=== PATIENT | female | born 1980 | race Caucasian/White ===

== ENCOUNTER → 2020-03-05 15:36 | Outpatient (BNVA) | payer SELFPAY | PROVIDERS: Family Provider Family Medicine; Visit Provider Obstetrics & Gynecology | DX: N91.4 Secondary oligomenorrhea (principal) | CPT/HCPCS: 82670; 83001; 84146; 84402; 85027 ==

== ENCOUNTER → 2020-03-17 13:07 | Outpatient (BNVA) | payer SELFPAY | PROVIDERS: Family Provider Family Medicine; Visit Provider Obstetrics & Gynecology | DX: N91.5 Oligomenorrhea, unspecified (principal) | CPT/HCPCS: 76830; 88175 ==

== ENCOUNTER 2020-07-29 11:03 | Outpatient (CLI) | payer SELFPAY ==
--- NOTE | 2020-07-29 11:13 | XR_ITS ---
WS: [id number] Lumbar spine, 3 views, 07/29/2020 Clinical Data: DORSALGIA Comparison: Lumbar spine, 07/07/2014. Findings: No compression fractures or subluxation is seen. There is degenerative disc narrowing at L5-S1.. The transverse processes and SI joints are normal. Minimal anterior osteophytes are present at L2-L3. XR/XR lumbar spine 2-3V* [id number] Impression: 1. Degenerative disc narrowing at L5-S1. 2. Minimal osteoarthritic spurring at L2-L3.
== END 2020-07-29 11:04 | disposition home or self-care (01) ==
LOC: RAD 11:08
PROVIDERS: PCP Nurse Practitioner; Visit Provider Nurse Practitioner
DX: M54.5 Low back pain (principal)
CPT/HCPCS: 72100

== ENCOUNTER → 2020-08-06 09:50 | Outpatient (BNVA) | payer SELFPAY | PROVIDERS: PCP Nurse Practitioner; Referring Provider Nurse Practitioner; Visit Provider Anesthesiology Pain Medicine | DX: G89.29 Other chronic pain (principal); M48.062 Spinal stenosis, lumbar region with neurogenic claudication; M54.9 Dorsalgia, unspecified; M25.552 Pain in left hip | CPT/HCPCS: 99204 ==

== ENCOUNTER 2020-08-17 10:52 | Outpatient (CLI) | payer SELFPAY ==
--- NOTE | 2020-08-17 11:00 | MR_ITS ---
WS: [id number] MRI LUMBAR SPINE NONCONTRAST HISTORY: M48.062 - Spinal stenosis, lumbar region with neurogenic ... COMPARISON: 10/23/2014 TECHNIQUE: Sagittal and axial multisequence imaging is submitted. Mild LEFT curvature thoracic spine. Straightening of the normal lumbar lordosis. No marrow edema or acute fracture. Mild disc space narro wing and desiccation at L4-5 and L5-S1 similar to the prior study. Degenerative disc disease at T10-11 and T11-12. At T10-11 LEFT paracentral small disc protrusion with annular fissure. At T11-12 there is a shallow central disc bulging without significant stenosis or c ontact on the cord. Conus terminates normally at L1-2 disc level. L1-L2: Normal. L2-L3: Normal. L3-L4: Mild ligamentum flavum disease and facet arthritis. No stenosis. L4-L5: Mild ligamentum flavum disease with facet arthritis and fluid in the facet joints. Disc osteop hyte with protrusion and annular fissure in the LEFT foramen with mild contact on the LEFT L4 nerve r oot. Additional smaller disc protrusion with fissure in the RIGHT foramen without significant stenosi s. L5-S1: Mild disc bulging with mild ligamentum flavum disease and facet arthritis. There is mild narro wing of the LEFT subarticular recess and foramen due to disc and osteophyte disease. Paravertebral soft tissues are negative. Mild uterine enlargement. Uterus measures 11.3 cm in length with increased fluid along the endometrial canal. Recent ultrasound was performed on 03/17/2020 which described a fibroid uterus. MR/MR lumbar spine wo con* [id number] IMPRESSION: 1. Mild to moderate stenosis of the LEFT L4-5 foramen due to disc and osteophy te and annular fissures within the disc contacting the L4 nerve root. Very slig ht progression since 2014. 2. Moderate LEFT subarticular recess and foraminal stenosis at L5-S1 due to di sc and osteophyte disease. Similar to the prior study.
== END 2020-08-17 10:53 | disposition home or self-care (01) ==
LOC: RADSHAW 10:56
PROVIDERS: PCP Nurse Practitioner; Visit Provider Anesthesiology Pain Medicine
DX: M48.062 Spinal stenosis, lumbar region with neurogenic claudication (principal); M48.07 Spinal stenosis, lumbosacral region
CPT/HCPCS: 72148

== ENCOUNTER → 2020-10-22 09:25 | Outpatient (BNVA) | payer OTHER, SELFPAY | PROVIDERS: PCP Nurse Practitioner; Visit Provider Anesthesiology Pain Medicine | DX: G89.29 Other chronic pain (principal); M54.5 Low back pain; M25.552 Pain in left hip | CPT/HCPCS: 99214 ==

== ENCOUNTER 2020-12-22 10:33 | Outpatient (RCR) | payer OTHER, SELFPAY | END 2020-12-26 23:59 | disposition home or self-care (01) | LOC: SPT 10:33 | PROVIDERS: PCP Nurse Practitioner; Visit Provider Anesthesiology Pain Medicine | DX: M54.50 Low back pain, unspecified (principal); G89.29 Other chronic pain | CPT/HCPCS: 97161 ==

== ENCOUNTER 2020-12-27 06:00 | Outpatient (RCR) | payer OTHER, SELFPAY | END 2021-01-18 12:23 | disposition home or self-care (01) | LOC: SPT 06:00 | PROVIDERS: PCP Nurse Practitioner; Visit Provider Anesthesiology Pain Medicine | DX: M54.50 Low back pain, unspecified (principal); G89.29 Other chronic pain | CPT/HCPCS: 97113 ==

== ENCOUNTER → 2020-12-30 08:58 | Outpatient (BNVA) | payer OTHER, SELFPAY | PROVIDERS: PCP Nurse Practitioner; Visit Provider Anesthesiology Pain Medicine | DX: G89.29 Other chronic pain (principal); M54.50 Low back pain, unspecified; M25.552 Pain in left hip; M79.604 Pain in right leg; M79.605 Pain in left leg | CPT/HCPCS: 99213 ==

== ENCOUNTER → 2021-10-05 14:34 | Outpatient (BNVA) | payer OTHER, SELFPAY | PROVIDERS: PCP Nurse Practitioner; Referring Provider Nurse Practitioner Family; Visit Provider Obstetrics & Gynecology | DX: Z01.419 Encounter for gynecological examination (general) (routine) without abnormal findings (principal) | CPT/HCPCS: 87624 ==

== ENCOUNTER 2021-10-21 12:25 | Outpatient (RCR) | payer OTHER, SELFPAY | END 2021-10-26 23:59 | disposition home or self-care (01) | LOC: SPT 12:25 | PROVIDERS: PCP Nurse Practitioner; Referring Provider Nurse Practitioner Family; Visit Provider Nurse Practitioner Family | DX: M54.9 Dorsalgia, unspecified (principal) | CPT/HCPCS: 97161 ==

== ENCOUNTER → 2021-11-03 13:19 | Outpatient (BNVA) | payer OTHER, SELFPAY | PROVIDERS: PCP Nurse Practitioner; Visit Provider Obstetrics & Gynecology | DX: N92.0 Excessive and frequent menstruation with regular cycle (principal) | CPT/HCPCS: 76830 ==

== ENCOUNTER 2021-11-08 06:42 | Day surgery (SDC) | payer OTHER, SELFPAY ==
[2021-11-07 11:56] VITALS: BMI 36.3
[2021-11-08] VITALS (8 sets, daily range): BP systolic 134–153; BP diastolic 85–103; PULSE 63–87; RESP 16–20; TEMP 36.5–37.1; O2SAT 97–100
[2021-11-08 07:19] LABS: OR HCG Qualitative Urine Negative (Negative)
[2021-11-08] MEDS: sodium chloride 0.9% 1,000 ML 30 ML IV (07:31)
--- NOTE | 2021-11-08 07:50 | ANES.PREANE2 ---
Pre-Anesthetic Assessment Height/Weight: Height 1.6 m Weight 92.986 kg Temp Pulse Resp BP Pulse Ox O2 Del Method 97.8 F 63 18 153/103 97 11/08/21 07:04 11/08/21 07:04 11/08/21 07:04 11/08/21 07:04 11/08/21 07:04 11/08/21 07:06 Preop Diagnosis: menorrhagia, endometrial polyps Operation Date: 11/08/21 08:35 Proposed Procedures p Hysteroscopy, dilation and curettage with Myosure and Novasure 79700, 80379, 28049,N84.0,N92.0(Not Applicable) - Joyce Diego MD s Hysteroscopy w/ Ablation w/ Novasure(Not Applicable) - Joyce Diego MD s Dilation And Curettage (D&C)(Not Applicable) - Joyce Diego MD Familial anesthetic complications: After tubal had some difficulty breathing, resolved with observation Was Beta Nafisa taken within 24 hours: Yes Was Clonidine taken within 24 hours: N/A Last intake: Intake Last Liquid Date 11/07/21 Last Liquid Time 21:00 Last Solid Date 11/07/21 Last Solid Time 18:30 Social No alcohol and No tobacco Exam alert, oriented x 3, clear to auscultation bilaterally and regular rate & rhythm Airway Submandibular: within normal limits Cervical ROM: within normal limits Mallampati: Class II Dentition: full Pulmonary Asthma CV/HEM Hypertension METS > 4 Menorrhagia, oligomenorrhea Hepatic None reported GI PCOS Metabolic [place] [facility] [place] Fibromyalgia Neuropsych Anxiety, Depression and Headache Anesthetic Plan ASA status: 2 Anesthesia: Anesthesia Evaluation and General Other: We discussed risk and benefits of general anesthesia including PONV, sore throat (sometimes severe), corneal abrasion, positioning and peripheral nerve injuries, life threatening allergic reaction, post operative ICU admission requiring prolonged intubation, aspiration, stroke, heart attack, , and rare incidences of recall. Patient consents to proceed with general anesthesia. Medications/Allergies Home Medications Medication Instructions Recorded Confirmed Last Taken Type hydrochlorothiazide 25 mg tablet 25 mg PO DAILY PRN Edema 03/05/20 11/08/21 10/11/21 History ibuprofen 600 mg tablet 600 mg PO QID PRN Pain 03/05/20 11/08/21 10/27/21 History metoprolol tartrate 25 mg tablet 25 mg PO BID 03/05/20 11/08/21 11/08/21 06:20 History venlafaxine 37.5 mg tablet 37.5 mg PO DAILY 10/05/21 11/08/21 11/07/21 History cranberry wuoe-K-owkqjqpi coag 450 1 tab PO DAILY 10/24/21 11/08/21 11/07/21 History mg-30 mg-50 million cell tablet (Vbjouzkof-Wedmrswlt-Fkvgnuo C) gabapentin 300 mg capsule 300 mg PO TID pain 90 days #270 10/24/21 11/08/21 11/07/21 Rx caps multivitamin 1 tab PO DAILY 10/24/21 11/08/21 11/07/21 History Allergies Allergy/AdvReac Type Severity Reaction Status Date / Time codeine Allergy hives Verified 11/08/21 06:57 egg Allergy Explosive Verified 11/08/21 06:57 diarrhea, cramping, nausea latex Allergy irritation Verified 11/08/21 06:57 of skin naproxen [From Aleve] Allergy knees and Verified 11/08/21 06:57 ankles hurt and swell Sulfa (Sulfonamide Allergy burn rash Verified 11/08/21 06:57 Antibiotics) over body sumatriptan [From Imitrex] AdvReac Severe migraine Verified 11/08/21 06:57 worsened Current Medications Generic Name Dose Route Start Last Admin Trade Name Freq PRN Reason Stop Dose Admin Sodium Chloride 1,000 mls @ 30 mls/hr 11/08/21 07:00 11/08/21 07:31 Sodium Chloride 0.9% IV 11/09/21 06:59 30 mls/hr .Q24H MANUEL Administration PFSH Anesthesia Medical History Arthritis Spine Asthma Mild Back pain Depression Fibromyalgia Hypertension Migraines Surgical History History of bilateral tubal ligation (~2006) . [place] [facility] Family History Mother Family history of thyroid problem Stroke Hyperlipidemia Hypertension Grandmother Family history of thyroid problem Maternal CAD (coronary artery disease) Paternal Family/Other Family history of thyroid problem Maternal Aunt CAD (coronary artery disease) Paternal Uncle Breast cancer Maternal Aunt Ovarian cancer Aunt Grandfather CAD (coronary artery disease) Paternal Liver cancer Paternal Hypertension Paternal Father Hypertension Sister Hypertension Brother Hypertension Family history of thyroid problem Social History Smoking and tobacco status: never smoked Second hand smoke exposure: No Alcohol intake: never History of recent travel: Yes Details: [place], [place] Out of state: Yes Female Reproductive History Date of last menstrual period: 10/14/21 Data Anesthesia Cardiac Studies: No Data to Display
[2021-11-08] MEDS: scopolamine 1.5 Patch 1 PATCH TRANSDERMA (07:59)
[2021-11-08] MEDS: diphenhydrAMINE 50 mg/mL SDV 1mL 12.5 MG IVP (07:59)
--- NOTE | 2021-11-08 08:09 | W.PM.OPSUD ---
Surgery/Procedure H&P Update DATE OF PROCEDURE: November 08, 2021 DATE H&P PERFORMED: 11/07/21 H&P UPDATE INFORMATION: I have reviewed H&P completed within last 30 days, I have examined patient prior to procedure and No changes to prior documentation PREOP DIAGNOSIS: menorrhagia, endometrial polyps PLANNED PROCEDURE: Operation Date: 11/08/21 08:35 Proposed Procedures p Hysteroscopy, dilation and curettage with Myosure and Novasure 04202, 54484, 32004,N84.0,N92.0(Not Applicable) - Joyce Diego MD s Hysteroscopy w/ Ablation w/ Novasure(Not Applicable) - Joyce Diego MD s Dilation And Curettage (D&C)(Not Applicable) - Joyce Diego MD Related Problem List Diagnoses (1) Endometrial polyp:
[2021-11-08] MEDS: ceFAZolin 2,000 MG in sodium chloride 0.9% (plus) 50 ML 100 MG IV (08:33)
--- NOTE | 2021-11-08 09:27 | PM.OP ---
Operative Report Date of procedure: November 08, 2021 Pre-op diagnosis: Preop Diagnosis menorrhagia, endometrial polyps Post-op diagnosis: same Post-op findings: endometrial and endocervical polyps Procedure done: hysteroscopy, D&C with myosure, endometrial ablation with novasure Specimens removed/disposition: endometrial and endocervical curettings to pathology Surgeon: Joyce Diego Anesthesia: General Estimated blood loss (mL): 10 IV fluids (mL): 800 Complications: none Findings: 11 week sized enlargd uterus. Multiple uterine polyps Condition: stable Disposition: PACU Procedure: The patient was taken to the operating room where monitored anesthesia was administered and to be adequate. She was prepped and draped in the normal sterile fashion in the dorsal lithotomy position in [facility]. A weighted speculum was placed into the vagina and the anterior lip of the cervix grasped with a single-tooth tenaculum. The uterus was sounded to 11 cm. The cervix was dilated to 16 Italian. The hysteroscope was advanced into the endometrial cavity. There was excessive tissue, endometrial polyps, endocervical polyps visualized. The MyoSure device was activated and the endometrial tissue was removed. An endocervical curettage was performed and sent to pathology. Pictures were taken. Attention was then turned to the NovaSure portion of the procedure. The NovaSure device was advanced into the endometrial cavity. The endometrial length was 6.5+ and the endometrial width was 4.8. The NovaSure device was activated and burn time was 33 seconds. All instruments were removed. The patient tolerated the procedure well. Sponge lap and needle counts were correct x3. She was taken to the recovery room in stable condition.
--- NOTE | 2021-11-08 09:34 | PM.DCS ---
Discharge Providers Date of Admission: 11/08/21 Date of Discharge: November 08, 2021 Attending Provider at Discharge: Joyce Diego MD Primary Care Provider: Cinda Sweet NP Diagnoses at Discharge Discharge Diagnosis (1) Endometrial polyp: Status: Acute Hospital Course Hospital Course The patient was admitted for surgery. She did well postoperatively and was ready for discharge. Discharge Data Studies Completed and Pending Pending at discharge Category Date Time Status ES surgery / GI images Routine Exams 11/08/21 08:15 Taken Pathology: Surgical [PTH] Routine Pth 11/08/21 09:14 Ordered Laboratory Results Urine HCG, Qual Negative (Negative) 11/08/21 07:18 Vitals Last Vital Signs Temp 97.8 F 11/08/21 07:04 Pulse 63 11/08/21 07:04 Resp 18 11/08/21 07:04 BP 153/103 11/08/21 07:04 Pulse Ox 97 11/08/21 07:04 O2 Del Method 11/08/21 07:06 Discharge Plan Discharge Patient Disposition: Home Condition: Stable Prescriptions: Continued metoprolol tartrate 25 mg tablet 25 mg PO BID hydrochlorothiazide 25 mg tablet 25 mg PO DAILY PRN (Reason: Edema) ibuprofen 600 mg tablet 600 mg PO QID PRN (Reason: Pain) venlafaxine 37.5 mg tablet 37.5 mg PO DAILY multivitamin Tablet 1 tab PO DAILY Egsjiyrgm-Bwpvqerny-Qnprkms C 450-30-50 kt-hw-bienwpb tablet 1 tab PO DAILY gabapentin 300 mg capsule 300 mg PO TID 90 Days Qty: 270 0RF Discharge Orders: Discharge Order (Routine); Ordered 11/08/21 Ordered By: Joyce Diego Discharge Attestations Time Spent in Discharge Care*: less than 30 min Quality Metrics Clinical Quality Measures [ No reported AMI, CVA or VTE this stay] Coding Level of Care Code Acute Chg FW DC note Diagnoses Endometrial polyp N84.0
--- NOTE | 2021-11-08 09:44 | SUR.PHASEI ---
0931 PT TO PACU 4 PT AWAKES TO VOICE, GOOD RESP EFFORT NOTED MONITOR SR WITH NO ECTOPY, ABDOMEN SOFT, PT VERBALLY DENIES NAUSEA, C/O OF SOME CRAMPING PAIN PT SMILING AND TALKATIVE, WARM BLANKET TO ABDOMEN FOR COMFORT, IV TO RT WRIST #20 WITH NS 200ML UP AT KVO RATE PER GRAVITY, ID BRACELET TO RT WRIST, PT ID'D WITH 2 IDENTIFERS
--- NOTE | 2021-11-08 10:06 | SUR.PHASEI ---
0954 PT AWAKE ALERT DENIES PAIN AND NAUSEA, PT TO ROOM PT HANDOFF AT BEDSIDE WITH MINESH SOSA.
--- NOTE | 2021-11-08 15:42 | ANE.PACU2 ---
Inpatient post-anesthesia follow up: Airway intact: Yes Vital signs: Temperature 97.7 F Pulse Rate 68 Respiratory Rate 18 Blood Pressure 146/99 Pulse Oximetry 99 Oxygen Delivery Me thod Room Air Oxygen Flow Rate Fraction of Inspir ed Oxygen Hydration adequate: Yes Nausea and vomiting: No Pain level: 1 Mental status: Baseline
== END 2021-11-08 10:54 | disposition home or self-care (01) ==
PROVIDERS: PCP Nurse Practitioner Family; Visit Provider Obstetrics & Gynecology
PROC: 0UDB8ZZ Extraction of Endometrium, Via Natural or Artificial Opening Endoscopic (ICD-10-PCS; CPT 58558; principal; 2021-11-08 08:25)
PROC: 0U598ZZ Destruction of Uterus, Via Natural or Artificial Opening Endoscopic (ICD-10-PCS; CPT 58563; 2021-11-08 08:25)
PROC: (CPT 58120; 2021-11-08 08:25)
DX: N84.0 Polyp of corpus uteri (principal); J45.909 Unspecified asthma, uncomplicated; I10 Essential (primary) hypertension; Z88.2 Allergy status to sulfonamides; Z88.5 Allergy status to narcotic agent
CPT/HCPCS: 58558; 81025; 84703; 88305; J1100; J1200; J1885; J2405; J2704; J3010; J3490; J7030

== ENCOUNTER 2022-01-03 11:54 | Observation (INO) | payer OTHER, SELFPAY ==
[2022-01-02 12:46] VITALS: BMI 35.7
[2022-01-03] VITALS (24 sets, daily range): BP systolic 99–162; BP diastolic 66–105; PULSE 55–86; RESP 10–20; TEMP 36.1–37.3; O2SAT 91–97
--- NOTE | 2022-01-03 08:29 | W.PM.OPSUD ---
Surgery/Procedure H&P Update DATE OF PROCEDURE: January 03, 2022 DATE H&P PERFORMED: 12/29/21 H&P UPDATE INFORMATION: I have reviewed H&P completed within last 30 days, I have examined patient prior to procedure and No changes to prior documentation PREOP DIAGNOSIS: Simple endometrial hyperplasia PLANNED PROCEDURE: Operation Date: 01/03/22 09:30 Proposed Procedures p Laparoscopic assisted vaginal hysterectomy, bilateral salpingectomy 85608, Possible anterior and posterior repair 25126,N85.01,N92.0(Not Applicable) - Joyce Diego MD s Laparoscopic Salpingectomy(Bilateral) - Joyce Diego MD s Anterior Repair(Not Applicable) - Joyce Diego MD s Posterior Repair(Not Applicable) - Joyce Diego MD s Sling Single Incision Midurethral Sling(Not Applicable) - Joyce Diego MD Related Problem List Diagnoses (1) Simple endometrial hyperplasia: (2) Menorrhagia: (3) Endometrial polyp: (4) Oligomenorrhea: Qualifiers: Oligomenorrhea type: secondary Qualified Code(s): N91.4 - Secondary oligomenorrhea
[2022-01-03] MEDS: CELEcoxib 200 mg Capsule 400 MG PO (08:37)
[2022-01-03] MEDS: gabapentin 300 mg Capsule PO ×3 (08:38→21:39)
[2022-01-03] MEDS: phenazopyridine 100 mg Tablet 200 MG PO ×3 (08:39→21:39)
[2022-01-03] MEDS: scopolamine 1.5 Patch 1 PATCH TRANSDERMA (08:39)
[2022-01-03] MEDS: acetaminophen 1,000 MG/100 ML PIGGYBACK 400 MG IV (08:53)
[2022-01-03] MEDS: ceFAZolin 2,000 MG in sodium chloride 0.9% (plus) 50 ML 100 MG IV ×2 (09:23→17:35)
[2022-01-03 09:28] LABS: Basophils # 0.1 10^3/uL (0.0-0.1); Basophils % 0.9 %; Eosinophils # 0.4 10^3/uL (0.0-0.8); Eosinophils % 7.2 %; Hematocrit 42.7 % (37.0-47.0); Hemoglobin 13.5 g/dL (11.5-15.3); Lymphocytes # 1.2 10^3/uL (0.8-4.8); Lymphocytes % 20.4 %; Mean Corpuscular HGB Conc 31.6 g/dL (30.0-36.0); Mean Corpuscular Hemoglobin 29.3 pg (28.0-34.0); Mean Corpuscular Volume 92.8 fl (81-99); Mean Platelet Volume 10.5 fL (7.4-10.4); Monocytes # 0.3 10^3/uL (0.2-0.9); Monocytes % 5.9 %; Neutrophils # 3.74 10^3/uL (1.8-7.7); Neutrophils % 65.3 %; Nucleated Red Blood Cells % 0 %; Platelet Count 276 10^3/cmm (130-400); Red Cell Distribution Width 12.7 % (12.1-15.1); White Blood Count 5.7 10^3/uL (4.0-10.0)
--- NOTE | 2022-01-03 09:45 | ANES.PREANE2 ---
Pre-Anesthetic Assessment Height/Weight: Height 1.6 m Weight 91.626 kg Temp Pulse Resp BP Pulse Ox O2 Del Method 99.2 F 59 L 16 155/95 97 01/03/22 08:22 01/03/22 08:22 01/03/22 08:22 01/03/22 08:22 01/03/22 08:22 01/03/22 08:22 Preop Diagnosis: Simple endometrial hyperplasia Operation Date: 01/03/22 09:30 Proposed Procedures p Laparoscopic assisted vaginal hysterectomy, bilateral salpingectomy 87277, Possible anterior and posterior repair 97749,N85.01,N92.0(Not Applicable) - Joyce Diego MD s Laparoscopic Salpingectomy(Bilateral) - Joyce Diego MD s Anterior Repair(Not Applicable) - Joyce Diego MD s Posterior Repair(Not Applicable) - Joyce Diego MD s Sling Single Incision Midurethral Sling(Not Applicable) - Joyce Diego MD Familial anesthetic complications: none Was Beta Nafisa taken within 24 hours: Yes Was Clonidine taken within 24 hours: N/A Last intake: Intake Last Liquid Date 01/01/22 Last Liquid Time 23:40 Last Solid Date 01/02/22 Last Solid Time 22:00 Social No alcohol and No tobacco Exam alert, oriented x 3, clear to auscultation bilaterally and regular rate & rhythm Airway Submandibular: within normal limits Cervical ROM: within normal limits Mallampati: Class II Dentition: full Pulmonary Asthma CV/HEM Hypertension Metabolic Morbid Obesity [facility] [place] Fibromyalgia and Lower Back Pain Neuropsych Anxiety and Depression Anesthetic Plan ASA status: 2 Anesthesia: General Medications/Allergies Home Medications Medication Instructions Recorded Confirmed Last Taken Type hydrochlorothiazide 25 mg tablet 25 mg PO DAILY PRN Edema 03/05/20 01/03/22 2 Months Ago History ~11/03/21 ibuprofen 600 mg tablet 600 mg PO QID PRN Pain 03/05/20 01/03/22 01/02/22 History metoprolol tartrate 25 mg tablet 25 mg PO BID 03/05/20 01/03/22 01/03/22 History venlafaxine 37.5 mg tablet 37.5 mg PO DAILY 10/05/21 01/03/22 01/02/22 History cranberry mcat-S-vxqpkpou coag 450 1 tab PO DAILY 10/24/21 01/03/22 01/02/22 History mg-30 mg-50 million cell tablet (Bvmnbflwt-Dbasiryjw-Wigpmbg C) gabapentin 300 mg capsule 300 mg PO TID pain 90 days #270 10/24/21 01/03/22 1 Week Ago Rx caps ~12/27/21 multivitamin 1 tab PO DAILY 10/24/21 01/03/22 01/02/22 History Allergies Allergy/AdvReac Type Severity Reaction Status Date / Time egg Allergy Severe Explosive Verified 01/03/22 09:07 diarrhea, cramping, nausea hydrocodone Allergy Severe ADR-Vomitin Verified 01/03/22 09:07 g Sulfa (Sulfonamide Allergy Severe burn rash Verified 01/03/22 09:07 Antibiotics) over body latex Allergy Mild irritation Verified 01/03/22 09:07 of skin naproxen [From Aleve] Allergy Mild knees and Verified 01/03/22 09:07 ankles hurt and swell codeine AdvReac Severe hives Verified 01/03/22 09:07 sumatriptan [From Imitrex] AdvReac Severe migraine Verified 01/03/22 08:18 worsened [facility] Anesthesia Medical History Arthritis Spine Asthma Mild Back pain Depression Fibromyalgia Hypertension Migraines Surgical History History of bilateral tubal ligation (~2006) . [place] [facility] [place], [place]. Family History Mother Family history of thyroid problem Stroke Hypertension Grandmother Family history of thyroid problem Maternal Family/Other Family history of thyroid problem Maternal Aunt Breast cancer Maternal Aunt Ovarian cancer Aunt Grandfather Hypertension Paternal Father Hypertension Sister Hypertension Brother Hypertension Family history of thyroid problem Denies family history of Colon cancer Diabetes Hypercholesteremia Uterine cancer Thyroid disease Female Reproductive History Date of last menstrual period: 12/15/21 Data Anesthesia : 01/03/22 08:58 01/03/22 08:58 Short CBC 01/03/22 Range/Units 08:58 WBC 5.7 (4.0-10.0) 10^3/uL Hgb 13.5 (11.5-15.3) g/dL Hct 42.7 (37.0-47.0) % MCV 92.8 (81-99) fl Plt Count 276 (130-400) 10^3/cmm Neut % (Auto) 65.3 % Neut # (Auto) 3.74 (1.8-7.7) 10^3/uL BMP 01/03/22 08:58 Sodium Cancelled Potassium Cancelled Chloride Cancelled Carbon Dioxide Cancelled BUN Cancelled Creatinine Cancelled Glucose Cancelled Calcium Cancelled Cardiac Studies: No Data to Display
[2022-01-03 10:30] LABS: Anion Gap 13.8 (5-19); Blood Urea Nitrogen 5 mg/dL (6-20); Calcium 8.3 mg/dL (8.5-10.5); Carbon Dioxide 24 mmol/L (22-29); Chloride 103 mmol/L (98-107); Glomerular Filtration Rate 109.6 mL/min (90-130); Glucose 98 mg/dL (65-115); Osmolality Calculated 281 mOsm/kg (285-295); Potassium 3.8 mmol/L (3.5-5.1); Sodium 137 mmol/L (136-145)
[2022-01-03] MEDS: vasopressin 20 unit/mL INJ INJECTION (11:00)
--- NOTE | 2022-01-03 11:37 | PM.OP ---
Operative Report Date of procedure: January 03, 2022 Pre-op diagnosis: Preop Diagnosis Simple endometrial hyperplasia Post-op diagnosis: same Post-op findings: 9 week sized uterus with multiple fibroids Procedure done: LAVH, perineorrhaphy, bilateral salpingectomy Specimens removed/disposition: uterus, tubes to pathology Surgeon: Joyce Diego Anesthesia: General Estimated blood loss (mL): 150 IV fluids (mL): 900 Urine output (mL): 1,000 Complications: none Findings: 9 week sized uterus, normal appearing ovaries, normal tubes with previous btl Condition: stable Disposition: PACU Procedure: The patient was taken to the operating room where general anesthesia was administered and found to be adequate. She was prepped and draped in the normal sterile fashion in the dorsal lithotomy position in [facility]. A Jerez catheter was placed. A weighted speculum was placed into the vagina and the anterior lip of the cervix was grasped with a single tooth tenaculum. The Zumi uterine manipulator was placed. The weighted speculum was removed. The gloves were changed and attention was turned to the abdomen. A 5 mm supraumbilical incision was made. Using a 5 mm port with the camera, the port was placed into the abdomen. The abdomen was insufflated. Two low, lateral 5 mm ports were placed on the left and right under direct visualization from the camera. The right tube was grasped and elevated. Using the laparoscopic cautery, the mesosalpinx was divided between the ovary and tube. The tube was removed. This was performed the same way on the left. The uteroovarian ligaments as well as the round ligaments were ligated. Attention was then turned to the vaginal portion of the procedure. The weighted speculum was placed into the vagina. The zumi manipulator was removed. The single tooth tenaculum was removed and replaced with the sierra's tenaculum. 10 mL of dilute Pitressin was injected at the vesicovaginal junction. A circumferential incision was made at the vesicovaginal junction and the vaginal mucosa reflected cephalad. The posterior peritoneum was entered sharply with the Metzenbaum scissors and the long weighted speculum replaced. Using the Jorge clamps the uterosacral ligaments were clamped cut and suture-ligated. The anterior peritoneum was entered sharply with the metzenbaum scissors. Then sequentially the uterine arteries and cardinal ligaments were clamped cut and suture-ligated. A single-tooth tenaculum was used to deliver the uterus. The remaining segement of the utero-ovarian ligaments were clamped cut and suture-ligated bilaterally and the specimen was removed. There was good hemostasis with only mild bleeding from the cuff. The peritoneum was closed with a pursestring using 2-0 Vicryl. The vaginal cuff was closed with 0 Vicryl in a running locked pattern incorporating the uterosacral ligaments into the lateral aspects of the vaginal cuff. The Jerez catheter was removed and the cystoscope advanced into the bladder. The patient was given pyridium and bilateral spill was noted. There were no injuries or deficits noted in the bladder. The cystoscope was removed and the Jerez was replaced. Attention was then turned to the perineorrhphy. Allis clamps were placed on the posterior fourchette. A 3 cm wedge of the fourchette was removed. This was repaired in the usual fashion with O-vicryl. Vaginal packing was placed for good hemostasis. The gloves and gowns were changed and attention was turned to the abdomen. The ports were closed with 2-0 monocryl with skin glue. The patient tolerated the procedure well. Sponge lap and needle counts were correct x3. She was taken to the recovery room in stable condition.
[2022-01-03] MEDS: ondansetron 2 mg/ML SDV 2 mL 4 MG IVP ×2 (12:15→12:32)
--- NOTE | 2022-01-03 12:16 | PC.NURSE ---
Small emesis appros 30 cc yellow bile
[2022-01-03] MEDS: metoclopramide 5 mg/mL SDV 2 mL 10 MG IVP ×2 (12:41→13:03)
[2022-01-03] MEDS: dextrose 5%-lactated ringers 1,000 ML 125 ML IV ×2 (13:54→21:42)
[2022-01-03] MEDS: ketorolac 30 mg/mL INJ IVP ×2 (13:55→19:44)
--- NOTE | 2022-01-03 15:24 | ANE.PACU2 ---
Inpatient post-anesthesia follow up: Airway intact: Yes Vital signs: Temperature 96.9 F Pulse Rate 63 Respiratory Rate 14 Blood Pressure 117/80 Pulse Oximetry 92 Oxygen Delivery Me thod Room Air Oxygen Flow Rate 2 Fraction of Inspir ed Oxygen Hydration adequate: Yes Nausea and vomiting: No Pain level: 4 Mental status: Baseline
[2022-01-03] MEDS: metoprolol tartrate 25 mg Tablet PO (19:44)
[2022-01-03] MEDS: docusate sodium 100 mg Capsule PO (19:44)
[2022-01-03] MEDS: venlafaxine ER (24HR) 37.5 mg Capsule PO (21:40)
[2022-01-04] MEDS: ceFAZolin 2,000 MG in sodium chloride 0.9% (plus) 50 ML 100 MG IV (01:41)
[2022-01-04] MEDS: ketorolac 30 mg/mL INJ IVP (01:41)
[2022-01-04 05:15] VITALS: BP 124/75; PULSE 72; TEMP 36.9; O2SAT 95
[2022-01-04 05:17] LABS: Hematocrit 35.3 % (37.0-47.0); Hemoglobin 11.6 g/dL (11.5-15.3); Mean Corpuscular HGB Conc 32.9 g/dL (30.0-36.0); Mean Corpuscular Hemoglobin 29.6 pg (28.0-34.0); Mean Corpuscular Volume 90.1 fl (81-99); Mean Platelet Volume 10.2 fL (7.4-10.4); Platelet Count 273 10^3/cmm (130-400); Red Blood Count 3.92 10^6/uL (4.1-5.3); Red Cell Distribution Width 12.6 % (12.1-15.1); White Blood Count 10.3 10^3/uL (4.0-10.0)
[2022-01-04] MEDS: metoprolol tartrate 25 mg Tablet PO (09:13)
[2022-01-04] MEDS: docusate sodium 100 mg Capsule PO (09:14)
[2022-01-04] MEDS: phenazopyridine 100 mg Tablet 200 MG PO (09:14)
[2022-01-04] MEDS: ibuprofen 800 mg tablet PO (09:14)
[2022-01-04] MEDS: gabapentin 300 mg Capsule PO (09:15)
[2022-01-04 09:16] VITALS: BP 134/84; PULSE 75; RESP 16; TEMP 36.7; O2SAT 96
--- NOTE | 2022-01-04 10:26 | P.DS_ITS ---
Discharge Providers Date of Admission: 01/03/22 11:54 Date of Discharge: January 04, 2022 Attending Provider at Admission: Joyce Diego MD Attending Provider at Discharge: Joyce Diego MD Primary Care Provider: Cinda Sweet NP Diagnoses at Discharge Discharge Diagnosis (1) Simple endometrial hyperplasia: Status: Acute (2) Menorrhagia: Status: Acute (3) Endometrial polyp: Status: Acute (4) Oligomenorrhea: Status: Acute Qualifiers: Oligomenorrhea type: secondary Qualified Code(s): N91.4 - Secondary oligomenorrhea Reason for Visit Reason for Visit: Benign endometrial hyperplasia Hospital Course Hospital Course The patient was admitted for surgery. She did well postoperatively and was ready for discharge on day #1. Physical Exam Const: COMMON NORMALS: no acute distress, patient oriented x3, no limitations, healthy appearing, alert and well nourished GENERAL APPEARANCE: cooperative, comfortable, well kempt and well developed ORIENTATION/CONSCIOUSNESS: Yes awake, Yes oriented to person, Yes oriented to place and Yes oriented to time Resp: COMMON NORMALS: normal respiratory effort EFFORT & INSPECTION: Yes able to speak in complete sentences GI: COMMON NORMALS: Soft to palpation and non-tender PALPATION: Yes Soft to palpation Extremity: COMMON NORMALS: no calf tenderness Neuro: COMMON NORMALS: patient oriented x3 SENSORIUM/ORIENTATION: Yes alert, Yes oriented to person, Yes oriented to place and Yes oriented to time Psych: COMMON NORMALS: mental status grossly normal, Normal thought process present, cooperative, normal affect and speech normal APPEARANCE: Yes well kempt SPEECH: Yes normal speech THOUGHT PROCESS: Normal thought process present Urinary Catheter Management: Jerez Latex Free: Cath Placed During This Visit: yes, but has since been removed by the nurse Reason for Continuing Indwelling Catheter: Decision to DC Catheter Urinary Catheter Date of Insertion: 01/03/22 Urinary Catheter Time of Insertion: 10:02 Date Urinary Catheter Removed: 01/04/22 Time Urinary Catheter Discontinued: 05:00 Discharge Data Studies Completed and Pending Pending at discharge Category Date Time Status Urine Culture Routine Lab 01/03/22 10:04 Received Pathology: Surgical [PTH] Routine Pth 01/03/22 11:31 Received Laboratory Results WBC 10.3 10^3/uL (4.0-10.0) H 01/04/22 05:10 RBC 3.92 10^6/uL (4.1-5.3) L 01/04/22 05:10 Hgb 11.6 g/dL (11.5-15.3) 01/04/22 05:10 Hct 35.3 % (37.0-47.0) L 01/04/22 05:10 MCV 90.1 fl (81-99) 01/04/22 05:10 MCH 29.6 pg (28.0-34.0) 01/04/22 05:10 MCHC 32.9 g/dL (30.0-36.0) 01/04/22 05:10 RDW 12.6 % (12.1-15.1) 01/04/22 05:10 Plt Count 273 10^3/cmm (130-400) 01/04/22 05:10 MPV 10.2 fL (7.4-10.4) 01/04/22 05:10 Neut % (Auto) 65.3 % 01/03/22 08:58 Lymph % (Auto) 20.4 % 01/03/22 08:58 Union % (Auto) 5.9 % 01/03/22 08:58 Eos % (Auto) 7.2 % 01/03/22 08:58 Baso % (Auto) 0.9 % 01/03/22 08:58 Neut # (Auto) 3.74 10^3/uL (1.8-7.7) 01/03/22 08:58 Lymph # (Auto) 1.2 10^3/uL (0.8-4.8) 01/03/22 08:58 [place] # (Auto) 0.3 10^3/uL (0.2-0.9) 01/03/22 08:58 Eos # (Auto) 0.4 10^3/uL (0.0-0.8) 01/03/22 08:58 Baso # (Auto) 0.1 10^3/uL (0.0-0.1) 01/03/22 08:58 Nucleated RBC % (auto) 0 % 01/03/22 08:58 Nucleated RBCs # 0.0 /100WBC 01/03/22 08:58 Sodium 137 mmol/L (136-145) 01/03/22 09:48 Potassium 3.8 mmol/L (3.5-5.1) 01/03/22 09:48 Chloride 103 mmol/L (98-107) 01/03/22 09:48 Carbon Dioxide 24 mmol/L (22-29) 01/03/22 09:48 Anion Gap 13.8 (5-19) 01/03/22 09:48 BUN 5 mg/dL (6-20) L 01/03/22 09:48 Creatinine 0.6 mg/dL (0.5-0.9) 01/03/22 09:48 GFR Calculation 109.6 mL/min (90-130) 01/03/22 09:48 Glucose 98 mg/dL (65-115) 01/03/22 09:48 Calculated Osmolality 281 mOsm/kg (285-295) L 01/03/22 09:48 Calcium 8.3 mg/dL (8.5-10.5) L 01/03/22 09:48 Blood Type A Positive 01/03/22 08:58 Rho(D) Type Positive 01/03/22 08:58 Antibody Screen Negative 01/03/22 08:58 Vitals Last Vital Signs Temp 98.1 F 01/04/22 09:16 Pulse 75 01/04/22 09:16 Resp 16 01/04/22 09:16 BP 134/84 01/04/22 09:16 Pulse Ox 96 01/04/22 09:16 O2 Del Method 01/04/22 09:16 O2 Flow Rate 2 01/03/22 12:50 Discharge Plan Discharge Patient Disposition: Home Condition: Stable Prescriptions: New ibuprofen 800 mg Tablet 800 mg PO Q8H Qty: 30 0RF hydrocodone-acetaminophen 5-325 mg Tablet 1 tab PO Q4H PRN (Reason: Moderate To Severe Pain) Qty: 30 0RF docusate sodium 100 mg Capsule 100 mg PO BID Qty: 60 0RF Continued metoprolol tartrate 25 mg tablet 25 mg PO BID hydrochlorothiazide 25 mg tablet 25 mg PO DAILY PRN (Reason: Edema) ibuprofen 600 mg tablet 600 mg PO QID PRN (Reason: Pain) multivitamin Tablet 1 tab PO DAILY Hxhhrqove-Icuafmfoq-Dolqiwi C 450-30-50 yi-jl-syayeoh tablet 1 tab PO DAILY gabapentin 300 mg capsule 300 mg PO TID 90 Days Qty: 270 0RF Effexor XR 37.5 mg Capsule,Extended Release 24hr 37.5 mg PO DAILY Discharge Orders: Discharge Order (Routine); Ordered 01/04/22 Ordered By: Joyce Diego Referrals: Joyce Diego MD [Physician] - 01/09/22 8:45 am (Your 6 week postoperative appointment is February 13, 2022 at 4:00 p.m.) Patient Instructions: Ibuprofen (By mouth), Laxative, Stool Softeners (By mouth), Salpingectomy (DC), Laparoscopic Hysterectomy (DC), Cystoscopy (DC), Posterior Vaginal Repair (DC), OB Food/Drug Interaction Guide, Opioid Safety Activity Restrictions/Additional Instructions: Nothing in vagina for 6 weeks Do not lift anything over 5 pounds Monitor incision sites for bleeding, separation, and bruising Monitor vaginal bleeding. Spotting is normal, anything heavier than spotting or a light period is abnormal and requires medical attention Monitor for signs of infection: fever greater than 100.4 F, chills, foul smelling vaginal discharge, and pus like drainage from incisions. Notify Dr. Sean shore immediately for concerns of infection. Seek medical care immediately for chest pain, shortness of breath or painful, red swollen calf muscle, severe abdominal pain No driving until released by Dr. Diego Discharge Attestations Time Spent in Discharge Care*: less than 30 min Quality Metrics Clinical Quality Measures [ No reported AMI, CVA or VTE this stay] Coding Level of Care Code Acute Chg FW DC note Diagnoses Simple endometrial hyperplasia N85.01 Menorrhagia N92.0 Endometrial polyp N84.0 Oligomenorrhea N91.4 Oligomenorrhea type: secondary
[2022-01-04 10:45] VITALS: BP 134/84; PULSE 75; RESP 16; TEMP 36.7; O2SAT 96
== END 2022-01-04 10:45 | disposition home or self-care (01) ==
LOC: OBGYN 11:54
PROVIDERS: Admitting Provider Obstetrics & Gynecology; PCP Nurse Practitioner Family; Visit Provider Obstetrics & Gynecology
PROC: 0UT9FZZ Resection of Uterus, Via Natural or Artificial Opening With Percutaneous Endoscopic Assistance (ICD-10-PCS; CPT 12002; principal; 2022-01-03 09:20)
PROC: (CPT 58661; 2022-01-03 09:20)
PROC: (CPT 57250; 2022-01-03 09:20)
PROC: 0TJB8ZZ Inspection of Bladder, Via Natural or Artificial Opening Endoscopic (ICD-10-PCS; CPT 52000; 2022-01-03 09:20)
DX: N85.01 Benign endometrial hyperplasia (principal); N91.4 Secondary oligomenorrhea; N92.0 Excessive and frequent menstruation with regular cycle; N84.0 Polyp of corpus uteri
CPT/HCPCS: 12002; 58552; 36415; 80048; 81025; 85025; 85027; 86850; 86900; 87086; 88307; G0378; J0131; J0690; J1100; J1170; J1200; J1885; J2370; J2405; J2704; J2710; J2765; J3010; J3490; J7121

== ENCOUNTER 2022-02-23 14:52 | Outpatient (CLI) | payer OTHER, SELFPAY ==
--- NOTE | 2022-02-23 15:00 | MM_ITS ---
WS: [id number] BILATERAL 3D TOMOSYNTHESIS DIGITAL SCREENING MAMMOGRAPHY WITH CAD CLINICAL INFORMATION: SCREEN HISTORY: Screening mammogram. No current complaints. COMPARISON: None. TECHNIQUE: Bilateral CC and MLO views. FINDINGS: Scattered fibroglandular densities bilaterally. No suspicious focal mass, asymmetry, calcifications, or architectural distortion. No evidence of malignancy. MM/[place] [id number] IMPRESSION: BI-RADS: 1-Negative FOLLOW UP: 1 Year Follow-up Recommend return to annual screening mammography.
== END 2022-02-23 14:53 | disposition home or self-care (01) ==
LOC: RAD 14:53
PROVIDERS: PCP Nurse Practitioner Family; Visit Provider Obstetrics & Gynecology
DX: Z12.31 Encounter for screening mammogram for malignant neoplasm of breast (principal)
CPT/HCPCS: 77063; 77067

== ENCOUNTER 2023-02-25 08:27 | Emergency (ER) | payer OTHER, SELFPAY ==
[2023-02-25 08:31] VITALS: BP 202/99; PULSE 65; RESP 18; TEMP 36.6; O2SAT 99; BMI 38.9
--- NOTE | 2023-02-25 08:43 | CTR_ITS ---
PROCEDURE INFORMATION: Exam: CT Head Without Contrast Exam date and time: 02/25/2023 8:50 AM Age: 42 years old Clinical indication: Pain; Speech disturbance; Headache; Migraine; Aura effect not specified; Does not respond to medication; Severity not specified; Additional info: Migraine, slurred speech TECHNIQUE: Imaging protocol: Computed tomography of the head without contrast. Radiation optimization: All CT scans at this facility use at least one of these dose optimization techniques: automated exposure control; mA and/or kV adjustment per patient size (includes targeted exams where dose is matched to clinical indication); or iterative reconstruction. REPORTING DATA: Count of CT and Cardiac NM exams in prior 12 months: This patient has received 0 known CTs and 0 known cardiac nuclear medicine studies in the 12 months prior to the current study. COMPARISON: No relevant prior studies available. RADIATION DOSE METRICS: Total DLP (mGy-cm): 1087.48 FINDINGS: Brain: No hemorrhage. Unremarkable white matter. No mass effect. Cerebral ventricles: No ventriculomegaly. Paranasal sinuses: Visualized sinuses are unremarkable. No fluid levels. Mastoid air cells: Visualized mastoid air cells are well aerated. Bones/joints: Unremarkable. No acute fracture. Soft tissues: Unremarkable. CT/CT head wo con* [id number] IMPRESSION: No acute intracranial abnormality.
--- NOTE | 2023-02-25 09:01 | ED_ITS ---
HPI - Headache 2 General: Chief Complaint: Headache Stated Complaint: headache,dizzy, blurred vision, trouble standing Time Seen by Provider: 02/25/23 08:38 Source: patient Mode of arrival: ambulatory History of Present Illness: 42-year-old female presents emergency ro with headache for the last 5 days blurry vision and nausea reports the headache is on the right side of her face retrobulbar extends to the crown of her head no recent trauma she tried various yfrp-ivl-mrdyjny medications ibuprofen Dramamine and Benadryl with minimal results. She has a known history of migraines as well as hypertension she is on metoprolol MD elicited complaint: headache Associated symptoms: Reports malaise, photophobia and sound sensitivity; Deny chest pain, confusion, cough, diaphoresis, eye pain, eye redness, fever(s), lightheadedness, loss of vision, nausea, neck stiffness, numbness, paresthesias, pre-syncope, rash, seizures, short of breath, syncope, vomiting or weakness Treatments prior to arrival: ibuprofen and other (Benadryl and Dramamine OTC as needed over the last 5 days) Review of Systems 2 Const: Reports: malaise; Denies: fever(s), chills or diaphoresis Card: Denies: chest pain, lightheadedness, syncope or pre-syncope Resp: Denies: dyspnea GI: Denies: abdominal pain, nausea or vomiting : Denies: dysuria, urinary frequency or urinary urgency Musc: Reports: neck pain; Denies: back pain Skin/Breast: Denies: rash Neuro: Reports: headache(s); Denies: confusion PFSH ED 2 PFSH: Medical History Simple endometrial hyperplasia Menorrhagia Endometrial polyp Depression Fibromyalgia Migraines Arthritis Spine Back pain Asthma Mild Hypertension Oligomenorrhea Surgical History History of bilateral tubal ligation (~2006) . Performed by Dr. Quinteros at [facility] in [place], [place]. Family History Mother Family history of thyroid problem Stroke Hypertension Grandmother Family history of thyroid problem Maternal Family/Other Family history of thyroid problem Maternal Aunt Breast cancer Maternal Aunt Ovarian cancer Aunt Grandfather Hypertension Paternal Father Hypertension Sister Hypertension Brother Hypertension Family history of thyroid problem Denies family history of Colon cancer Diabetes Hypercholesteremia Uterine cancer Thyroid disease Social History Substance/Drug Use: never Physical Exam 2 Const: COMMON NORMALS: no acute distress GENERAL APPEARANCE: cooperative and comfortable ORIENTATION/CONSCIOUSNESS: Yes awake, Yes oriented to person, Yes oriented to place and Yes oriented to time HENMT: COMMON NORMALS: normocephalic, atraumatic and hearing grossly normal bilaterally HEAD & SCALP: normocephalic and atraumatic Eye: DIRECT OPHTHALMOSCOPY: Yes photophobia Resp: COMMON NORMALS: normal respiratory effort, No retractions, No use of accessory muscles and clear to auscultation bilaterally AUSCULTATION: clear to auscultation bilaterally Cardio: COMMON NORMALS: regular rate, regular rhythm and No murmurs present (Cardio) RATE: regular rate RHYTHM: regular rhythm GI: COMMON NORMALS: Soft to palpation and No hepatosplenomegaly present A USCULTATION: Yes normoactive bowel sounds PALPATION: Yes Soft to palpation, No Tenderness to palpation present (GI), No Guarding due to palpation present (GI) and Yes No hepatosplenomegaly present Extremity: COMMON NORMALS: normal to inspection, capillary refill normal, no clubbing, cyanosis or edema, no calf tenderness and no pedal edema Neuro: SENSORIUM/ORIENTATION: Yes oriented to person, Yes oriented to place and Yes oriented to time Skin: COMMON NORMALS: no rashes or lesions noted GENERAL SKIN EXAM: no rashes or lesions noted Course 2 Vital Signs: Vital signs: Vital Signs Temperature 97.8 F 02/25/23 08:31 Pulse Rate 54 L 02/25/23 10:52 Respiratory Rate 18 02/25/23 10:52 Blood Pressure 160/95 02/25/23 10:52 Pulse Oximetry 98 02/25/23 10:52 Oxygen Delivery Me thod Room Air 02/25/23 10:52 MDM - Headache Medical Decision Making Labs and imaging reviewed. Discussed with the patient. She has had some improvement. Will discharge patient home. Gave Phenergan to use as needed if has recurrent symptoms encouraged her to follow-up with her primary care doctor if she has persistent or recurrent headaches may need to start prophylaxis. Medical Records I reviewed the patient's medical records. Lab Data I reviewed the patient's lab results. 02/25/23 09:11 02/25/23 09:[address] 02/25/23 08:43 IMPRESSION: No acute intracranial abnormality. Laboratory Results WBC 6.32 10^3/uL (3.29-11.43) 02/25/23 09:11 RBC 4.58 10^6/uL (3.85-5.65) 02/25/23 09:11 Hgb 13.70 g/dL (11.27-16.99) 02/25/23 09:11 Hct 41.4 % (36-47) 02/25/23 09:11 MCV 90.4 fl (85-98) 02/25/23 09:11 MCH 29.9 pg (27-33) 02/25/23 09:11 MCHC 33.1 g/dL (30-55) 02/25/23 09:11 RDW 12.4 % (12.1-15.1) 02/25/23 09:11 Plt Count 252 10^3/cmm (157-399) 02/25/23 09:11 MPV 10.0 fL (7.4-10.4) 02/25/23 09:11 Neut % (Auto) 63.7 % 02/25/23 09:11 Lymph % (Auto) 23.1 % 02/25/23 09:11 [place]ys % (Auto) 6.2 % 02/25/23 09:11 Eos % (Auto) 6.2 % 02/25/23 09:11 Baso % (Auto) 0.5 % 02/25/23 09:11 Neut # (Auto) 4.03 10^3/uL (1.8-7.7) 02/25/23 09:11 Lymph # (Auto) 1.5 10^3/uL (0.8-4.8) 02/25/23 09:11 [place]ys # (Auto) 0.4 10^3/uL (0.2-0.9) 02/25/23 09:11 Eos # (Auto) 0.4 10^3/uL (0.0-0.8) 02/25/23 09:11 Baso # (Auto) 0.0 10^3/uL (0.0-0.1) 02/25/23 09:11 Nucleated RBC % (auto) 0 % 02/25/23 09:11 Nucleated RBCs # 0.0 /100WBC 02/25/23 09:11 Sodium 135 mmol/L (136-145) L 02/25/23 09:11 Potassium 4.1 mmol/L (3.5-5.1) 02/25/23 09:11 Chloride 101 mmol/L (98-107) 02/25/23 09:11 Carbon Dioxide 22 mmol/L (22-29) 02/25/23 09:11 Anion Gap 16.1 (5-19) 02/25/23 09:11 BUN 7 mg/dL (6-20) 02/25/23 09:11 Creatinine 0.7 mg/dL (0.5-0.9) 02/25/23 09:11 GFR Calculation 91.3 mL/min (90-130) 02/25/23 09:11 Glucose 92 mg/dL (65-115) 02/25/23 09:11 Calculated Osmolality 278 mOsm/kg (285-295) L 02/25/23 09:11 Calcium 8.9 mg/dL (8.5-10.5) 02/25/23 09:11 Total Bilirubin 0.4 mg/dL (0.15-1.2) 02/25/23 09:11 AST 18 U/L (0-32) 02/25/23 09:11 ALT 22 U/L (0-33) 02/25/23 09:11 Alkaline Phosphatase 64 U/L (35-105) 02/25/23 09:11 Total Protein 7.4 g/dL (6.6-8.7) 02/25/23 09:11 Albumin 3.9 g/dL (3.5-5.2) 02/25/23 09:11 Globulin 3.5 g/dL (1.3-4.6) 02/25/23 09:11 All radiology interpretation(s) finalized by discharge Discharge Plan Discharge Patient Disposition: Home Clinical Impression: Migraine Condition: Stable Prescriptions: New promethazine 25 mg tablet 25 mg PO Q6H PRN (Reason: headache, nausea nad vomitting) Qty: 10 0RF No Action metoprolol tartrate 25 mg tablet 25 mg PO BID hydrochlorothiazide 25 mg tablet 25 mg PO DAILY PRN (Reason: Edema) multivitamin Tablet 1 tab PO DAILY Uuhhxrakf-Qrciomykk-Wbibojc C 450-30-50 oe-qr-equcezw tablet 1 tab PO DAILY gabapentin 300 mg capsule 300 mg PO TID 90 Days Qty: 270 0RF Effexor XR 37.5 mg Capsule,Extended Release 24hr 37.5 mg PO DAILY Discharge Orders: Discharge ED (Routine); Ordered 02/25/23 Ordered By: Emanuel Law Referrals: Cinda Sweet NP [Primary Care Provider] - Discharge Diet: Usual diet Discharge Activity: Increase activity as tolerated Patient Instructions: Opioid Safety, Pain Management Activity Restrictions/Additional Instructions: Thank you for choosing [facility] for your healthcare needs today. Please realize this is an emergency room and that we are providing you with a medical screening exam and this may not be complete and all inclusive of all the testing and or work up that you may need to determine your ailment or severity of your illness. It is very important that you follow up as instructed or that you return to the Emergency Department should you have concerns or if your condition changes or worsens in any way. You were seen today for headache which did improve some with medications given. CT of the head did not show any acute abnormalities. Your exam is not suggestive of stroke at this time. Recommend that you follow-up with your primary care doctor if headaches continue to bother. Encouraged rest, may use Tylenol ibuprofen or the promethazine prescribed for headache. 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
[2023-02-25 09:15] LABS: Basophils % 0.5 %; Eosinophils # 0.4 10^3/uL (0.0-0.8); Eosinophils % 6.2 %; Hematocrit 41.4 % (36-47); Lymphocytes # 1.5 10^3/uL (0.8-4.8); Lymphocytes % 23.1 %; Mean Corpuscular HGB Conc 33.1 g/dL (30-55); Mean Corpuscular Hemoglobin 29.9 pg (27-33); Mean Corpuscular Volume 90.4 fl (85-98); Monocytes # 0.4 10^3/uL (0.2-0.9); Monocytes % 6.2 %; Neutrophils # 4.03 10^3/uL (1.8-7.7); Neutrophils % 63.7 %; Nucleated Red Blood Cells % 0 %; Platelet Count 252 10^3/cmm (157-399); Red Blood Count 4.58 10^6/uL (3.85-5.65); Red Cell Distribution Width 12.4 % (12.1-15.1); White Blood Count 6.32 10^3/uL (3.29-11.43)
[2023-02-25] MEDS: metoprolol tartrate 25 mg Tablet 12.5 MG PO (09:34)
[2023-02-25] MEDS: ketorolac 30 mg/mL INJ IVP (09:37)
[2023-02-25] MEDS: promethazine 25 mg/mL SDV 1 mL IM (09:37)
[2023-02-25] MEDS: hyDRALAzine 20 mg/mL INJ 1 mL 10 MG IVP (09:37)
[2023-02-25 09:40] LABS: Alanine Aminotransferase 22 U/L (0-33); Albumin Level 3.9 g/dL (3.5-5.2); Alkaline Phosphatase 64 U/L (35-105); Blood Urea Nitrogen 7 mg/dL (6-20); Calcium 8.9 mg/dL (8.5-10.5); Carbon Dioxide 22 mmol/L (22-29); Chloride 101 mmol/L (98-107); Globulin 3.5 g/dL (1.3-4.6); Glomerular Filtration Rate 91.3 mL/min (90-130); Glucose 92 mg/dL (65-115); Osmolality Calculated 278 mOsm/kg (285-295); Sodium 135 mmol/L (136-145); Total Bilirubin 0.4 mg/dL (0.15-1.2); Total Protein 7.4 g/dL (6.6-8.7)
[2023-02-25] MEDS: valproic acid inj 500 MG in sodium chloride 0.9% 50 ML 55 MG IV (09:41)
[2023-02-25 09:53] LABS: Anion Gap 16.1 (5-19); Aspartate Amino Transferase 18 U/L (0-32); Potassium 4.1 mmol/L (3.5-5.1)
[2023-02-25 10:52] VITALS: BP 160/95; PULSE 54; RESP 18; O2SAT 98
== END 2023-02-25 13:05 | disposition home or self-care (01) ==
PROVIDERS: Emergency Provider Family Medicine; PCP Nurse Practitioner Family
DX: G43.909 Migraine, unspecified, not intractable, without status migrainosus (principal); I10 Essential (primary) hypertension
CPT/HCPCS: 70450; 80053; 85025; 96365; 96372; 96375; 99285; J0360; J1885; J2550; J3490

== ENCOUNTER → 2023-05-23 09:20 | Outpatient (BNVA) | payer OTHER, SELFPAY | PROVIDERS: PCP Nurse Practitioner Family; Referring Provider Nurse Practitioner Family; Visit Provider Psychiatry & Neurology Neurology | DX: G44.53 Primary thunderclap headache (principal); E50.9 Vitamin A deficiency, unspecified | CPT/HCPCS: 36415; 82306; 82607; 82746; 83735; 83921; 84295 ==

== ENCOUNTER 2023-06-25 07:46 | Outpatient (CLI) | payer OTHER, SELFPAY ==
--- NOTE | 2023-06-25 08:00 | MR_ITS ---
WS: [id number] MRI BRAIN WITH HIGH-RESOLUTION IMAGING THROUGH THE INTERNAL AUDITORY CANALS WITHOUT AND WITH CONTRAST HISTORY: Chronic Migraines COMPARISON: CT head 02/25/2023 TECHNIQUE: Multiplanar, multisequence imaging is performed through the brain. Additional 3 mm imaging performed in multiple planes through the internal auditory canal. Postcontrast imaging with 20 ml's of MultiHance. No acute intracranial hemorrhage, midline shift, edema or mass effect. No infarct. Normal gaviria-white matter differentiation. Ventricles and extra-axial spaces are normal. No inferior displacement of cerebellar tonsils. Clivus and pituitary gland are normal. Internal and external auditory canals: Unremarkable. Cranial nerves VII and VIII complexes: Unremarkable. No enhancement or mass. Cerebellopontine angles: Normal. Paranasal sinuses: Normal. Mastoid air cells: Normal. Calvarium and scalp: Normal. Visualized [place] and dural venous sinuses demonstrate no abnormality. IMPRESSION: Normal MRI IACs. No prior infarct and no mass.
[2023-06-25] MEDS: gadobenate dimeglumine 20 mL vial IV (10:58)
== END 2023-06-25 07:47 | disposition home or self-care (01) ==
LOC: RAD 07:47
PROVIDERS: PCP Nurse Practitioner Family; Visit Provider Otolaryngology
DX: G43.809 Other migraine, not intractable, without status migrainosus (principal)
CPT/HCPCS: 70553; A9577

== ENCOUNTER 2023-06-27 07:24 | Outpatient (CLI) | payer OTHER, SELFPAY ==
--- NOTE | 2023-06-27 07:45 | MR_ITS ---
WS: [id number] MRA ANGIOGRAPHY [place] OF [place] HISTORY: G44.53 - Primary thunderclap headache COMPARISON: CT head 02/25/2023 TECHNIQUE: 3-D MR angiography is performed of the [place]. All images are reviewed including source images. Small caliber distal RIGHT vertebral artery but it is patent. Dominant LEFT vertebral artery. Basilar artery is normal. No aneurysms. Posterior cerebral arteries are normal. Both posterior communicating arteries are identified with the RIGHT being dominant. Intracranial portion of the internal carotid arteries are normal course and caliber. No significant a therosclerosis, stenosis or aneurysm identified. Middle and anterior cerebral arteries are both paten t with no significant disease. Anterior communicating artery is also normal. No vasculitis. No athero sclerotic disease. MR/MR angio head wo con [id number] IMPRESSION: 1. Unremarkable MR angiogram [place]. 2. Dominant LEFT vertebral artery. 3. No aneurysm or significant atherosclerosis.
--- NOTE | 2023-06-27 08:00 | MR_ITS ---
WS: [id number] MRA CAROTID ARTERIES HISTORY: G44.53 - Primary thunderclap headache COMPARISON: None available. TECHNIQUE: MRA is performed with intravenous gadolinium. MIP and source images are reviewed. Right: Normal appearance of the RIGHT common, internal and external carotid arteries. No stenosis or plaque identified. Left: Normal appearance of the LEFT common, internal and external carotid arteries. No stenosis or pl aque. Subclavian Arteries: Normal. Vertebral Arteries: Normal. LEFT vertebral artery is dominant. MR/MR angio neck w con* [id number] IMPRESSION: Normal MRA carotid arteries. No stenosis or plaque.
[2023-06-27] MEDS: gadobenate dimeglumine 20 mL vial IV (11:19)
== END 2023-06-27 07:25 | disposition home or self-care (01) ==
LOC: RAD 07:24
PROVIDERS: PCP Nurse Practitioner Family; Visit Provider Psychiatry & Neurology Neurology
DX: G44.53 Primary thunderclap headache (principal)
CPT/HCPCS: 70544; 70548; A9577

== ENCOUNTER → 2023-09-03 15:22 | Outpatient (BNVA) | payer OTHER, SELFPAY | PROVIDERS: PCP Nurse Practitioner Family; Visit Provider Psychiatry & Neurology Neurology | DX: G44.53 Primary thunderclap headache (principal); G40.909 Epilepsy, unspecified, not intractable, without status epilepticus; E50.9 Vitamin A deficiency, unspecified; G43.E11 Chronic migraine with aura, intractable, with status migrainosus; H53.9 Unspecified visual disturbance; G43.809 Other migraine, not intractable, without status migrainosus | CPT/HCPCS: 36415; 84439; 84443; 84481 ==

== ENCOUNTER 2023-10-15 13:49 | Outpatient (CLI) | payer OTHER, SELFPAY ==
--- NOTE | 2023-10-15 13:45 | MR_ITS ---
WS: [id number] MRI HEAD WITH CONTRAST TECHNIQUE: Sagittal T1, T2 axial, T2 axial FLAIR, axial susceptibility weighted imaging, axial diffus ion weighted images, and coronal T2 images were obtained. Pre and post-T1 axial and post T1 coronal i mages. ADC and FSPGR images. CLINICAL INFORMATION: G43.E11 - Chronic migraine with aura, intractable, with s... COMPARISON: 06/27/2023 and 06/25/2023 FINDINGS: No evidence of restricted diffusion to suggest acute ischemia. Ventricular system and basilar cistern s are patent. Normal gaviria-white differentiation. No suspicious intracranial signal abnormalities. Inc idental adelaida cisterna magna. Normal vascular flow voids at the skull base. No extra-axial fluid colle ctions. No evidence of mass or mass effect. Mild mucosal thickening in the paranasal sinuses. Mastoid air cells are well aerated. Normal posterior nasopharynx. No hemosiderin on the susceptibility weighted images. Normal optic chiasm and pituitary infundibulum. Temporal lobes and hippocampal formations are normal in appearance. No abnormal intracranial enhancement. Normal visualized dural venous sinuses. MR/MR head wo/w con [id number] IMPRESSION: Some images degraded due to susceptibility artifact from left ear p iercing, unable to remove 1. No evidence of restricted diffusion to suggest acute ischemia. 2. No suspicious intracranial signal abnormalities. No hydrocephalus. 3. No hemosiderin on the susceptibility weighted images. 4. No abnormal gadolinium enhancement. 5. No other suspicious findings.
[2023-10-15] MEDS: gadobenate dimeglumine 20 mL vial IV (14:21)
== END 2023-10-15 13:50 | disposition home or self-care (01) ==
LOC: RAD 13:51
PROVIDERS: PCP Nurse Practitioner Family; Visit Provider Psychiatry & Neurology Neurology
DX: G43.E11 Chronic migraine with aura, intractable, with status migrainosus (principal)
CPT/HCPCS: 70553; A9577

== ENCOUNTER 2024-11-20 11:07 | Outpatient (CLI) | payer OTHER, SELFPAY ==
[2024-11-20 12:16] LABS: Hematocrit 39.8 % (36-47); Hemoglobin 13.10 g/dL (11.27-16.99); Mean Corpuscular HGB Conc 32.9 g/dL (30-55); Mean Corpuscular Hemoglobin 30.0 pg (27-33); Mean Corpuscular Volume 91.1 fl (85-98); Nucleated Red Blood Cells % 0 %; Platelet Count 272 10^3/cmm (157-399); Red Blood Count 4.37 10^6/uL (3.85-5.65); White Blood Count 5.76 10^3/uL (3.29-11.43)
[2024-11-20 12:27] LABS: Estmated Average Glucose 100; Hemoglobin A1C 5.1 % (4.0-6.0)
[2024-11-20 12:33] LABS: Creatinine Urine, Random 152 mg/dL (28-217); Microalbum Creatinine Ratio Ur 20 mg/dL (0-20)
[2024-11-20 12:55] LABS: Alanine Aminotransferase 29 U/L (0-33); Albumin Level 4.1 g/dL (3.5-5.2); Alkaline Phosphatase 62 U/L (35-105); Anion Gap 14.0 (5-19); Aspartate Amino Transferase 19 U/L (0-32); Blood Urea Nitrogen 10 mg/dL (6-20); Calcium 8.8 mg/dL (8.5-10.5); Carbon Dioxide 25 mmol/L (22-29); Chloride 103 mmol/L (98-107); Cholesterol 193 mg/dL (0-200); Globulin 3.2 g/dL (1.3-4.6); Glucose 99 mg/dL (65-115); HDL Cholesterol 48 mg/dL (60-100); Osmolality Calculated 285 mOsm/kg (285-295); Potassium 4.0 mmol/L (3.5-5.1); Sodium 138 mmol/L (136-145); Total Protein 7.3 g/dL (6.6-8.7); Triglycerides 106 mg/dL (0-150)
== END 2024-11-20 11:08 | disposition home or self-care (01) ==
LOC: LAB 11:08
PROVIDERS: PCP Nurse Practitioner Family; Visit Provider Nurse Practitioner Family
DX: E55.9 Vitamin D deficiency, unspecified (principal); I10 Essential (primary) hypertension; Z13.1 Encounter for screening for diabetes mellitus
CPT/HCPCS: 36415; 80053; 80061; 82044; 82306; 83036; 85025